=== PATIENT | female | born 1990 | race Asian ===

== ENCOUNTER 2020-10-26 10:20 | Emergency (ER) | payer MEDICAID ==
[2020-10-26 11:01] LABS: BILIRUBIN,URINE NEGATIVE (NEGATIVE); GLUCOSE, URINE (UA) NEGATIVE (NEGATIVE); KETONES,URINE (UA) NEGATIVE (NEGATIVE); LEUKOCYTE ESTERASE, URINE NEGATIVE (NEGATIVE); NITRITE,URINE NEGATIVE (NEGATIVE); OCCULT BLOOD,URINE NEGATIVE (NEGATIVE); PH,URINE 6.5 PH (5.0-7.5); PROTEIN,URINE NEGATIVE (NEGATIVE); UROBILINOGEN,URINE 0.2 (NORMAL) E.U./dL (NORMAL)
[2020-10-26 11:04] LABS: CLARITY,URINE CLEAR (CLEAR); HCG UR QUAL NEGATIVE
[2020-10-26] MEDS ORDERED: CHERRY SYRUP 10 ML UDC PO ONE (11:47)
[2020-10-26] MEDS ORDERED: DEXAMETHASONE 10 MG/ML VIAL PO STA (11:47)
--- NOTE | 2020-10-26 11:51 | ED Physician Documentation ---
History of Present Illness - Stated complaint Stated Complaint: N/V ABDOMINAL PX - Chief complaint Chief Complaint: General - History obtained from History obtained from: Patient - History of Present Illness Timing: How many weeks ago (3) - Additonal information Additional information: 29-year-old female presents to the emergency department feeling fatigued and worn out and she has had this similar feeling previously when she has had otitis. She remembers a 2-year period of time where she had repeated treatments of otitis and felt very similar to the way she is feeling now. She does have some ringing in her ears but she does not have a cough she thought she might have a low-grade fever. She has not been exposed to Covid she lives alone and she massed to go to the store her last exposure to an unmasked person with 6 weeks ago. Review of Systems Constitutional: reports: Fever, Myalgias, Fatigue Eyes: denies: Decreased vision Ears: reports: Tinnitus/ringing. denies: Loss of hearing, Ear pain, Drainage/discharge Nose: reports: Congestion Throat: denies: Sore throat Cardiac: denies: Chest pain / pressure, Palpitations Respiratory: denies: Dyspnea, Cough GI: reports: Abdominal Pain, Nausea. denies: Vomiting, Constipation, Diarrhea : denies: Dysuria, Frequency Skin: denies: Rash Musculoskeletal: denies: Neck pain, Back pain, Extremity pain Neurologic: denies: Generalized weakness, Focal weakness, Numbness PD PAST MEDICAL HISTORY - Past Medical History Past Medical History: Yes Endocrine/Autoimmune: Type 2 diabetes - Past Surgical History Past Surgical History: No - Present Medications Home Medications: Ambulatory Orders Medication Instructions Recorded Confirmed Amox/Clav 875/125 [Augmentin] 1 each PO Q12H #20 tablet 10/26/20 - Allergies Allergies/Adverse Reactions: Allergies Allergy/AdvReac Type Severity Reaction Status Date / Time Iodinated Contrast Media AdvReac Hives Verified 10/26/20 10:28 - Social History Does the pt smoke?: No Smoking Status: Never smoker Does the pt drink ETOH?: No Does the pt have substance abuse?: No - Immunizations Immunizations are current?: Yes PD ED PE NORMAL - Vitals Vital signs reviewed: Yes (tachy and hypertensive ) - General General: Alert and oriented X 3, No acute distress, Well developed/nourished - HEENT HEENT: Atraumatic, PERRL, EOMI, Other (The left TM is dull, erythematous and with rounding of the landmarks. 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, No motor deficit, No sensory deficit, Normal speech Eye Opening: Spontaneous Motor: Obeys Commands Verbal: Oriented GCS Score: 15 - Psych Psych: Normal mood, Normal affect Results - Vitals Vitals: Vital Signs - 24 hr 10/26/20 10/26/20 10:24 10:43 Temperature 36.9 C Heart Rate 108 H 71 Respiratory 18 16 Rate Blood Pressure 150/105 H 146/100 H O2 Saturation 100 100 Oxygen O2 Source Room air - Labs Labs: Laboratory Tests 10/26/20 10:45 Urine Color YELLOW Urine Clarity CLEAR Urine pH 6.5 Ur Specific [place] 1.015 Urine Protein NEGATIVE Urine Glucose (UA) NEGATIVE Urine Ketones NEGATIVE Urine Occult Blood NEGATIVE Urine Nitrite NEGATIVE Urine Bilirubin NEGATIVE Urine Urobilinogen 0.2 (NORMAL) Ur Leukocyte Esterase NEGATIVE Ur Microscopic Review NOT INDICATED Urine Culture Comments NOT INDICATED Urine HCG, Qual NEGATIVE PD MEDICAL DECISION MAKING - ED course Complexity details: reviewed results, re-evaluated patient, considered differential, d/w patient ED course: 29-year-old female with reports of intermittent nausea and dizziness and fatigue has developed progressive fatigue and feeling of heaviness in her body similar to what she has had when she is had otitis previously. Today on exam she does have otitis and she has not been able to get into see the walk-in clinic secondary to her symptoms. Today she is treated with dexamethasone we will place her on a course of antibiotic. Her abdominal pain is mild and unalarming urinalysis is unremarkable. Her exposure to Covid is nil. Departure - Departure Disposition: 01 Home, Self Care Clinical Impression: Otitis media Qualifiers: Otitis media type: suppurative Chronicity: acute Laterality: left Recurrence: not specified as recurrent Spontaneous tympanic membrane rupture: without spontaneous rupture Qualified Code(s): H66.002 - Acute suppurative otitis media without spontaneous rupture of ear drum, left ear Condition: Stable Instructions: ED Otitis Media Acute Adult Follow-Up: [facility] [Provider Group] Prescriptions: Amox/Clav 875/125 [Augmentin] 1 each PO Q12H #20 tablet
[2020-10-26 12:25] VITALS: BP 132/78
== END 2020-10-26 12:25 | disposition home or self-care (01) ==
LOC: ED 10:20
DX: H66.002 Acute suppurative otitis media without spontaneous rupture of ear drum, left ear (principal); R10.9 Unspecified abdominal pain; E11.9 Type 2 diabetes mellitus without complications
CPT/HCPCS: 81003; 81025; 99283; A9270; 81001; 87086